=== PATIENT | male | born 2000 | race Caucasian/White ===

== ENCOUNTER 2020-12-11 18:37 | Emergency (ER) | payer OTHER ==
[~2020-12-11] VITALS: Ht 172.7 cm; Wt 66.5 kg
[2020-12-11] MEDS ORDERED: KETOROLAC 30 MG/1 ML ONE (18:55)
[2020-12-11] MEDS ORDERED: KETOROLAC 30 MG/1 ML IM ONE (19:00)
--- NOTE | 2020-12-11 19:00 | NUR ---
PT. TO X-RAY AT THIS TIME; AMBULATORY WITH STEADY GAIT. WILL MEDICATE UPON RETURN.
--- NOTE | 2020-12-11 19:55 | NUR ---
CHART UP FOR RECHECK BY ERP.
[2020-12-11 20:27] VITALS: BP 121/67
== END 2020-12-11 20:32 | disposition home or self-care (01) ==
LOC: ED 20:09
DX: S43.52XA Sprain of left acromioclavicular joint, initial encounter (principal); V89.2XXA Person injured in unspecified motor-vehicle accident, traffic, initial encounter; Y93.89 Activity, other specified; Y92.410 Unspecified street and highway as the place of occurrence of the external cause; Y99.8 Other external cause status
CPT/HCPCS: 73030; 96372; 99283; J1885